=== PATIENT | male | born 1955 | race Caucasian/White ===

== ENCOUNTER 2025-05-24 19:46 | Emergency (ER) | payer BC, SELFPAY ==
[2025-05-24 19:53] VITALS: BP 157/80
[2025-05-24] MEDS: ANTIVERT 25 MG PO ×2 (21:47→23:42)
--- NOTE | 2025-05-24 21:56 | ED.GENMED ---
History of Present Illness
General
Chief Complaint: Dizziness
Time Seen by Provider: 05/24/25 21:21
Nursing documentation reviewed up to this point in time: agreed with
History of Present Illness
History of Present Illness:
69-year-old male brought to the ER by his for evaluation of abrupt onset dizziness that occurred this afternoon around noon. Patient had been doing some chores around his house when he all of a sudden felt very dizzy which she describes as a
sensation of movement. He was able to continue to work but eventually developed worsening symptoms associated with nausea and retching. He did not take any medications for symptoms prior to arrival. He denies headache. No change in vision. He
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 He denies any ear pain or pressure. No sore throat. No cough or cold symptoms. No fevers. He denies any paresthesias or weakness to his extremities. No
difficulty with speech or swallowing today. No syncope or reported trauma he does not take any blood thinners other than baby aspirin. He does have a significant prior history of ACS and underwent stenting many years ago. He denies any chest pain
or palpitations. He also has a history of hyperlipidemia and hypertension.
Review of Systems
Review of Systems
Allergies reviewed?: Yes
Phy Exam
Physical Exam
Physical Exam:
Patient is awake, alert, appears in no acute distress, head is NCAT, PERRL, EOMI, leftward nystagmus and rightward gaze, left tympanic membrane with mild bulging, no erythema, right tympanic membrane is within normal limits, mucous membranes moist,
conjunctiva pink, heart regular rate and rhythm without murmurs or ectopy, lungs are clear to auscultation without wheezes rales or rhonchi, no JVD, abdomen is soft and nontender on palpation, extremities without edema, GCS is 15, tongue is midline,
no dysdiadochokinesia, no ataxia, no pronator drift
NIH Stroke Score
Level of Consciousness: 0 - Alert
LOC questions: 0-Answers both correctly
LOC Commands: 0-Performs both correctly
Best Gaze: 0-Normal
Visual Bell: 0=Normal, no visual loss
Facial palsy: 0=Normal, symmetrical
Motor - Right Arm: 0=No drift 10 seconds
Motor - Left Arm: 0=No drift 10 seconds
Motor - Right Le-No drift 5 seconds
Motor - Left Le-No drift 5 seconds
Limb Ataxia: 0-Absent
Sensation: 0-Normal
Best Language: 0-No aphasia
Dysarthria: 0-Normal
Extinction and Inattention: 0-No abnormality
Total Score:: 0
Course
Orders/Labs/Results
Orders:
Orders
05/24/25 20:00
EKG [Electrocardiogram (*1)] Urgent
Reason for Study: Vertigo / Dizzy
05/24/25 20:01
EKG- Treatment ONCE
05/24/25 21:32
CT Head W/o Iv Contrast Urgent
Comment:
Reason For Exam: vertigo
Bedside Glucose- Treatment ONCE
Cardiac Monitoring- Treatment ONCE
Meclizine [Antivert] 25 mg PO NOW STA
Pulse Ox/cont/shift [RESP] Stat
Quantity: 1
05/24/25 21:34
CR Chest - 2 Views Urgent
Comment:
Reason For Exam: cva
05/24/25 21:43
Complete Blood Count/With Diff Urgent
Comprehensive Metabolic Panel Urgent
PTT Urgent
Prothrombin Time Urgent
05/24/25 23:35
Meclizine [Antivert] 25 mg PO NOW STA
Ondansetron Orally Disint [Zofran Odt (Orally Disintegrating)] 4 mg PO NOW STA
Abnormal Lab Results
05/24/25 05/24/25
21:43 21:58
WBC 11.9 H 10^3/uL
(4.8-10.8)
RBC 4.00 L 10^6/uL
(4.70-6.10)
Hct 38.2 L %
(39.0-52.0)
MCV 95.5 H fL
(80.0-94.0)
MCH 34.3 H pg
(27.0-31.0)
MPV 10.9 H fL
(7.4-10.4)
Abs Immat Gran (auto) 0.1 H 10^3/uL
(0-0.05)
Absolute Neuts (auto) 9.5 H 10^3/uL
(1.4-6.5)
Absolute Monos (auto) 1.0 H 10^3/uL
(0.1-0.6)
Neutrophils % 80.5 H %
(42.2-75.2)
Lymphocytes % 9.7 L %
(20.5-51.1)
BUN 22 H mg/dl
(9-20)
Glucose 111 H mg/dl
(70-99)
Total Bilirubin 1.6 H mg/dl
(0.2-1.3)
POC Glucose 113 H mg/dl
(70-99)
05/24/25 21:43
05/24/25 21:43
Mild elevation in white blood count, nonspecific
Vital Signs
Initial and Last Documented VS:
Initial Vital Signs
Temp Pulse Resp BP Pulse Ox
97.8 F 57 16 157/80 98
05/24/25 19:53 05/24/25 19:53 05/24/25 19:53 05/24/25 19:53 05/24/25 19:53
Last Documented Vital Signs
Temp Pulse Resp BP Pulse Ox
97.8 F 53 14 157/80 100
05/24/25 19:53 05/24/25 22:00 05/24/25 22:00 05/24/25 19:53 05/24/25 22:00
MDM/Problems Addressed
Differential Diagnosis Includes:
Differential diagnosis to consider but not limited to CVA, intracranial hemorrhage, intracranial mass, labyrinthitis along with other etiologies considered
Chronic conditions affecting care:
Age greater than 50, prior ACS, hypertension, high cholesterol
*Radiology
Radiology exam reviewed: preliminary read by ED provider (I independently viewed interpreted two-view chest x-ray showing no infiltrate, normal cardiac silhouette)
*Pulse Oximetry
SaO2: 99
Oxygen Mode of Delivery: Room air
Patient hypoxic: no
*EKG
Interpreted by ED Provider?: Yes (I independently viewed and interpreted twelve-lead EKG showing sinus bradycardia, rate 54, normal axis, normal intervals, inferior Q waves, this is an abnormal tracing without evidence for acute ischemia, no prior
for comparison)
*Clam Grader Interpretation
Rate: bradycardiac (I independently viewed and interpreted rhythm strip showing sinus bradycardia, no ectopy)
*Critical Care Note
Total Time (30-74mins, 75-104mins- exclusive of procedures): Not Applicable
Update Note
Update Note:
Will give meclizine and obtain CT head for further stroke assessment. Patient would not be a tPA candidate as he presented more than 6 hours after symptom onset.
2332: Patient feeling much better after meclizine administered. He was able to ambulate to the bathroom with a steady gait and no assistance. I reviewed CT results-no evidence for acute process, no evidence for prior CVA. I discussed with patient
and likely etiology symptoms related to peripheral vertigo and treatment of same. I discussed with him plan for discharge and strict return precautions along with need for follow-up with primary care physician. They expressed understanding of
plan and have no questions at the current time. Will give additional dose of meclizine and Zofran to take home given time of day and inability to have prescription filled at pharmacy.
ED Attending Note
-
Portions of this chart may have been created with voice recognition software.� Occasional wrong word or��sound alike� substitutions may have occurred due to the inherent limitations of voice recognition software.
Discharge Plan
Departure
Patient Disposition: Home (Routine Discharge)
Date of Disposition: 05/24/25
Time of Disposition: 23:34
Patient with high blood pressure during this ER visit?: Yes
Discharge Problem:
Vertigo
Instructions: Vertigo (a Type of Dizziness) (DC), BLOOD PRESSURE
Prescriptions:
New
ondansetron HCl 4 mg tablet
4 mg PO Q8H PRN (Reason: nausea) Qty: 10 0RF
meclizine 25 mg tablet
25 mg PO TID PRN (Reason: dizziness) Qty: 20 0RF
No Action
losartan 25 mg Tablet
25 mg PO DAILY
aspirin 81 mg Tablet
81 mg PO DAILY
cyanocobalamin (vitamin B-12) [Vitamin B-12] 1,000 mcg Tablet, Sublingual
1,000 mcg SUBLINGUAL DAILY
metoprolol succinate 25 mg Tablet Extended Release 24 Hr
12.5 mg PO DAILY
rosuvastatin 40 mg Tablet
40 mg PO DAILY
omega 9-vis-yug-fish oil [Fish Oil] 1,200 (144-216) mg Capsule
1 cap PO DAILY
Lumigan 0.01 % Drops
1 drp OPHTHALMIC (EYE) QPM
Referrals:
Patty Malcolm CRNP [Family Provider, Internal Medicine]
Activity Restrictions/Additional Instructions:
Encourage fluids. Use meclizine as prescribed as needed for dizziness. Please also use [id number] Flonase as per package instructions until you are seen in follow-up with your primary care physician for reevaluation and further care. Return
to the ER for any concerns.
Interventions
Interventions:
*Risk Screen - Suicide Last Done: 05/24/25 19:53
*General Assessment Last Done: 05/24/25 23:45
*Neglect/Abuse Screening Last Done: 05/24/25 19:53
*ED- Fall Risk Assessment Last Done: 05/24/25 23:45
*ED COVID-19 Vaccine History Last Done: 05/24/25 23:45
*ED Influenza Vaccine History Last Done: 05/24/25 23:45
*Nursing Disposition Last Done: 05/24/25 23:45
ED- Neurological Assessment Last Done: 05/24/25 22:12
ED- Cardiac Assessment Last Done: 05/24/25 23:46
ED Swallowing Screen Last Done: 05/24/25 22:12
Discharge Date and Time
Discharge Date/Time: 05/24/25 23:47
Print Language: GERMAN
[2025-05-24 22:00] LABS: Glucose - Point of Care 113 mg/dl (70-99)
[2025-05-24 22:03] LABS: Hematocrit 38.2 % (39.0-52.0); Hemoglobin 13.7 g/dL (13.0-18.0); Mean Corp Hgb Conc. 35.9 g/dL (33.0-37.0); Mean Corpuscular Volume 95.5 fL (80.0-94.0); Nucleated Red Blood Cells % 0 % (-); Platelet Count 166 10^3/uL (130-400); Red Cell Dist. Width 12.3 % (11.5-14.5)
[2025-05-24 22:12] LABS: APTT 24.9 Sec (23.4-35.0); INR 1.04; PT 13.7 Sec (11.4-14.6)
[2025-05-24 22:24] LABS: ALT (SGPT) 32 U/L (0-50); AST (SGOT) 40 U/L (17-59); Albumin 4.9 g/dl (3.5-5.0); Alkaline Phosphatase 38 U/L (38-126); Blood Urea Nitrogen 22 mg/dl (9-20); Calcium 10.2 mg/dl (8.4-10.2); Carbon Dioxide 27 mmol/L (22-30); Chloride 103 mmol/L (98-107); Glucose 111 mg/dl (70-99); Potassium 4.6 mmol/L (3.5-5.1); Sodium 136 mmol/L (135-145); Total Protein 7.5 g/dl (6.3-8.2); eGFR 59.47
[2025-05-24] MEDS: ZOFRAN ODT (ORALLY DISINTEGRATING) 4 MG PO (23:41)
== END 2025-05-24 23:47 | disposition home or self-care (01) ==
LOC: EMR 19:46
PROVIDERS: EMERGENCY PHYSICIAN Emergency Medicine; FAMILY PHYSICIAN Nurse Practitioner
DX: R42 Dizziness and giddiness (principal); E78.00 Pure hypercholesterolemia, unspecified; I10 Essential (primary) hypertension
CPT/HCPCS: 99284; 70450; 71046; 80053; 82962; 85025; 85610; 85730; 93005